=== PATIENT | male | born 1930 | race Caucasian/White ===

== ENCOUNTER 2022-03-07 17:47 | Inpatient (IN) | payer MEDICARE ==
[~2022-03-07] VITALS: Ht 177.8 cm; Wt 73.5 kg
[2022-03-07 19:06] VITALS: BP 129/72
[2022-03-07] MEDS ORDERED: DOCUSATE SODIUM 100MG CAPSULE PO PRN (19:30)
[2022-03-07] MEDS ORDERED: MORPHINE 2 MG/ML 1ML VIAL IV PRN (19:30)
[2022-03-07 20:04] LABS: BASO # 0.1 10^3/uL (0.0-0.2); BASO % 0.4 % (0.0-1.0); EOS % 0.1 % (0.0-3.0); HEMATOCRIT 32.9 % (42.0-52.0); HEMOGLOBIN 10.9 g/dl (13.5-17.5); LYMPH # 0.8 10^3/uL (1.5-5.0); LYMPH % 4.8 % (24.0-44.0); MEAN CORPUSCULAR HEMOGLOBIN 31.7 pg (27.0-33.0); MEAN CORPUSCULAR HGB CONC 33.1 g/dl (32.0-36.5); MEAN CORPUSCULAR VOLUME 95.6 fl (80.0-96.0); MONO # 0.8 10^3/uL (0.0-0.8); MONO % 4.4 % (2.0-8.0); NEUTROPHILS # 15.2 10^3/uL (1.5-8.5); NEUTROPHILS % 89.8 % (36.0-66.0); PLATELET COUNT, AUTOMATED 235 10^3/uL (150-450); RED BLOOD COUNT 3.44 10^6/uL (4.30-6.10); WHITE BLOOD COUNT 16.9 10^3/uL (4.0-10.0)
[2022-03-07 20:14] LABS: INR 1.08; PROTHROMBIN TIME 14.4 SECONDS (12.7-14.5)
[2022-03-07 20:15] LABS: PARTIAL THROMBOPLASTIN TIME 27.4 SECONDS (25.9-37.0)
[2022-03-07 20:28] LABS: BLOOD UREA NITROGEN 23 MG/DL (7-18); CALCIUM LEVEL 9.4 MG/DL (8.8-10.2); CARBON DIOXIDE LEVEL 26 MEQ/L (21-32); CHLORIDE LEVEL 106 MEQ/L (98-107); CREATININE FOR GFR 0.85 MG/DL (0.70-1.30); GLOMERULAR FILTRATION RATE > 60.0 (>35); GLUCOSE, FASTING 146 MG/DL (70-100); POTASSIUM SERUM 3.8 MEQ/L (3.5-5.1); SODIUM LEVEL 140 MEQ/L (136-145)
[2022-03-07] MEDS ORDERED: ASPIRIN 325 MG TAB PO SCH (21:00)
[2022-03-07 22:00] VITALS: BP 121/66
[2022-03-07] MEDS ORDERED: BAYE325T13 PO (23:10)
[2022-03-07] MEDS ORDERED: VITMTA PO (23:10)
[2022-03-07] MEDS ORDERED: FERR1TAB8 PO (23:10)
[2022-03-07] MEDS ORDERED: MAGN400T2 PO (23:10)
[2022-03-07] MEDS ORDERED: LUTE20TA2 PO (23:10)
[2022-03-07] MEDS ORDERED: VITA100093 PO (23:10)
[2022-03-07] MEDS ORDERED: FLON1SPR (23:10)
[2022-03-07] MEDS ORDERED: DICL20GE TOP (23:10)
[2022-03-07] MEDS ORDERED: HYDR-3490 PO (23:10)
[2022-03-07] MEDS ORDERED: GARL500C2 PO (23:10)
[2022-03-07] MEDS ORDERED: AZEL0.055 (23:10)
[2022-03-07] MEDS ORDERED: FISH1000 PO (23:10)
[2022-03-07] MEDS ORDERED: HOME MED LIST COMPLETE! XX SCH (23:15)
[2022-03-07] MEDS: LR 1,000 ML IV SCH (23:34)
[2022-03-07] MEDS: hydroCHLOROthiazide 12.5 MG CAPSULE PO SCH (23:34)
[2022-03-07 23:43] LABS: HEMOGLOBIN A1c 5.5 %
[2022-03-08] VITALS (8 sets, daily range): BP systolic 112–139; BP diastolic 58–65
[2022-03-08 00:09] LABS: NT-PRO BNP 114 PG/ML (<450)
[2022-03-08 06:22] LABS: HEMATOCRIT 30.6 % (42.0-52.0); HEMOGLOBIN 10.1 g/dl (13.5-17.5); MEAN CORPUSCULAR HEMOGLOBIN 31.6 pg (27.0-33.0); MEAN CORPUSCULAR VOLUME 95.6 fl (80.0-96.0); PLATELET COUNT, AUTOMATED 228 10^3/uL (150-450); WHITE BLOOD COUNT 12.9 10^3/uL (4.0-10.0)
[2022-03-08 06:49] LABS: BLOOD UREA NITROGEN 22 MG/DL (7-18); CALCIUM LEVEL 9.4 MG/DL (8.8-10.2); CARBON DIOXIDE LEVEL 29 MEQ/L (21-32); CHLORIDE LEVEL 105 MEQ/L (98-107); GLOMERULAR FILTRATION RATE > 60.0 (>35); GLUCOSE, FASTING 134 MG/DL (70-100); MAGNESIUM LEVEL 2.1 MG/DL (1.8-2.4); POTASSIUM SERUM 3.5 MEQ/L (3.5-5.1); SODIUM LEVEL 141 MEQ/L (136-145)
[2022-03-08 06:56] LABS: PERCENT SATURATION 13.5 % (19.7-50.0)
[2022-03-08] MEDS: THIAMINE 100 MG TAB PO SCH (09:40)
[2022-03-08] MEDS: MAGNESIUM OXIDE 400MG TAB (MAG-OX) PO SCH (09:40)
[2022-03-08] MEDS: VITAMIN D 1,000 INTERNATIONAL UNITS TABLET PO SCH (09:40)
[2022-03-08] MEDS: MULTIVITAMINS/MINERALS THERAP 1 TAB PO SCH (09:40)
[2022-03-08] MEDS: FERROUS SULFATE 325MG TAB PO SCH (09:40)
[2022-03-08] MEDS: FOLIC ACID 1 MG TAB PO SCH (09:40)
[2022-03-08] MEDS: FLUTICASONE PROP 0.05% NASAL SPRAY 16 GM (FLONASE) SCH (09:41)
[2022-03-08] MEDS: LR 1,000 ML IV SCH (12:21)
[2022-03-08] MEDS: ACETAMINOPHEN TAB 650MG DOSE (2X325MG) PO PRN ×2 (12:41→20:16)
[2022-03-08] MEDS ORDERED: propofoL 200 MG/20 ML VIAL As Ordered ONE (16:08)
[2022-03-08] MEDS ORDERED: LIDOCAINE 2% 100MG/5ML SDV (FOR ANES.) As Ordered ONE (16:08)
[2022-03-08] MEDS ORDERED: ceFAZolin 1GM VIAL (J0690 PER 500MG) As Ordered ONE ×2 (16:12→16:41)
[2022-03-08] MEDS ORDERED: ceFAZolin 2 GM/D5W 50 ML IV BAG (J0690 PER 500MG) As Ordered ONE (16:12)
[2022-03-08] MEDS ORDERED: KETAMINE HCL 200 MG/20 ML VIAL As Ordered ONE (16:37)
[2022-03-08] MEDS ORDERED: MIDAZOLAM INJ 2MG/2ML VIAL (J2250 PER 1MG) As Ordered ONE (16:38)
[2022-03-08] MEDS ORDERED: TRANEXAMIC ACID 100 MG/ML 10ML VIAL As Ordered ONE (16:41)
[2022-03-08] MEDS ORDERED: BUPIVACAINE HCL 0.25% 10ML VIAL As Ordered ONE (17:20)
[2022-03-08] MEDS ORDERED: BUPIVACAINE LIPOSOME/PF 1.3% 20ML VIAL (13.3MG/ML)(EXPAREL) As Ordered ONE (17:20)
[2022-03-08] MEDS: hydroCHLOROthiazide 12.5 MG CAPSULE PO SCH (20:15)
[2022-03-08 21:47] LABS: BILIRUBIN,DIRECT 0.3 MG/DL (0.0-0.2); BILIRUBIN,TOTAL 1.2 MG/DL (0.2-1.0); TOTAL PROTEIN 6.6 GM/DL (6.4-8.2)
[2022-03-09] MEDS: ceFAZolin SOD 2 GM in IV 1 EA IV SCH ×2 (00:56→07:49)
[2022-03-09 02:00] VITALS: BP 121/60
[2022-03-09 06:00] VITALS: BP 123/61
[2022-03-09 06:24] LABS: HEMATOCRIT 27.3 % (42.0-52.0); HEMOGLOBIN 8.9 g/dl (13.5-17.5); MEAN CORPUSCULAR HEMOGLOBIN 31.2 pg (27.0-33.0); MEAN CORPUSCULAR HGB CONC 32.6 g/dl (32.0-36.5); MEAN CORPUSCULAR VOLUME 95.8 fl (80.0-96.0); PLATELET COUNT, AUTOMATED 174 10^3/uL (150-450); RED BLOOD COUNT 2.85 10^6/uL (4.30-6.10)
[2022-03-09 06:45] LABS: BLOOD UREA NITROGEN 22 MG/DL (7-18); CARBON DIOXIDE LEVEL 30 MEQ/L (21-32); CHLORIDE LEVEL 102 MEQ/L (98-107); CREATININE FOR GFR 0.88 MG/DL (0.70-1.30); GLOMERULAR FILTRATION RATE > 60.0 (>35); GLUCOSE, FASTING 133 MG/DL (70-100); POTASSIUM SERUM 3.3 MEQ/L (3.5-5.1); SODIUM LEVEL 140 MEQ/L (136-145)
[2022-03-09] MEDS: NORCO, ANEXSIA 5/325MG TABLET (HYDROcodone/ACETAMINOPHEN) PO PRN ×3 (07:50→22:52)
[2022-03-09] MEDS: FOLIC ACID 1 MG TAB PO SCH (07:50)
[2022-03-09] MEDS: THIAMINE 100 MG TAB PO SCH (07:50)
[2022-03-09] MEDS: MULTIVITAMINS/MINERALS THERAP 1 TAB PO SCH (07:50)
[2022-03-09] MEDS: MAGNESIUM OXIDE 400MG TAB (MAG-OX) PO SCH (07:51)
[2022-03-09] MEDS: FLUTICASONE PROP 0.05% NASAL SPRAY 16 GM (FLONASE) SCH (07:51)
[2022-03-09] MEDS: FERROUS SULFATE 325MG TAB PO SCH (07:51)
[2022-03-09] MEDS ORDERED: ENOXAPARIN 40MG/0.4ML SYRINGE (J1650 PER 10MG) SC SCH (09:00)
[2022-03-09 10:00] VITALS: BP 128/58
[2022-03-09] MEDS: carisoprodoL 350 MG TAB PO PRN (10:19)
[2022-03-09] MEDS: ACETAMINOPHEN TAB 650MG DOSE (2X325MG) PO PRN (12:52)
[2022-03-09 14:00] VITALS: BP 118/60
[2022-03-09] MEDS: RIVAROXABAN 10 MG TAB (XARELTO) PO SCH (16:24)
[2022-03-09 18:00] VITALS: BP 136/63
[2022-03-09 18:29] LABS: FOLATE 11.5 NG/ML (>5.4)
[2022-03-09] MEDS: hydroCHLOROthiazide 12.5 MG CAPSULE PO SCH (20:57)
[2022-03-09 21:46] VITALS: BP 132/62
[2022-03-10 06:00] VITALS: BP 127/61
[2022-03-10 06:59] LABS: HEMOGLOBIN 7.9 g/dl (13.5-17.5); MEAN CORPUSCULAR HEMOGLOBIN 31.6 pg (27.0-33.0); MEAN CORPUSCULAR HGB CONC 32.9 g/dl (32.0-36.5); PLATELET COUNT, AUTOMATED 180 10^3/uL (150-450); WHITE BLOOD COUNT 14.2 10^3/uL (4.0-10.0)
[2022-03-10 08:00] VITALS: BP 108/60
[2022-03-10] MEDS ORDERED: POTASSIUM CHLORIDE 10MEQ SR TABLET PO ONE (08:00)
[2022-03-10] MEDS: FOLIC ACID 1 MG TAB PO SCH (08:42)
[2022-03-10] MEDS: FLUTICASONE PROP 0.05% NASAL SPRAY 16 GM (FLONASE) SCH (08:42)
[2022-03-10] MEDS: FERROUS SULFATE 325MG TAB PO SCH (08:42)
[2022-03-10] MEDS: THIAMINE 100 MG TAB PO SCH (08:43)
[2022-03-10] MEDS: VITAMIN D 1,000 INTERNATIONAL UNITS TABLET PO SCH (08:43)
[2022-03-10] MEDS: MAGNESIUM OXIDE 400MG TAB (MAG-OX) PO SCH (08:44)
[2022-03-10] MEDS: MULTIVITAMINS/MINERALS THERAP 1 TAB PO SCH (08:44)
[2022-03-10 11:48] LABS: BLOOD UREA NITROGEN 24 MG/DL (7-18); CALCIUM LEVEL 8.6 MG/DL (8.8-10.2); CARBON DIOXIDE LEVEL 33 MEQ/L (21-32); CHLORIDE LEVEL 101 MEQ/L (98-107); CREATININE FOR GFR 0.81 MG/DL (0.70-1.30); GLOMERULAR FILTRATION RATE > 60.0 (>35); GLUCOSE, FASTING 114 MG/DL (70-100); POTASSIUM SERUM 3.5 MEQ/L (3.5-5.1); SODIUM LEVEL 139 MEQ/L (136-145)
[2022-03-10 12:00] LABS: HEMATOCRIT 24.7 % (42.0-52.0); HEMOGLOBIN 8.3 g/dl (13.5-17.5); MEAN CORPUSCULAR HGB CONC 33.6 g/dl (32.0-36.5); MEAN CORPUSCULAR VOLUME 95.4 fl (80.0-96.0); PLATELET COUNT, AUTOMATED 185 10^3/uL (150-450); RED BLOOD COUNT 2.59 10^6/uL (4.30-6.10); WHITE BLOOD COUNT 13.4 10^3/uL (4.0-10.0)
[2022-03-10 12:24] LABS: MAGNESIUM LEVEL 2.2 MG/DL (1.8-2.4)
[2022-03-10] MEDS: NORCO, ANEXSIA 5/325MG TABLET (HYDROcodone/ACETAMINOPHEN) PO PRN ×2 (12:51→21:01)
[2022-03-10 14:00] VITALS: BP 110/58
[2022-03-10] MEDS: RIVAROXABAN 10 MG TAB (XARELTO) PO SCH (18:01)
[2022-03-10] MEDS: hydroCHLOROthiazide 12.5 MG CAPSULE PO SCH (20:59)
[2022-03-10 21:45] VITALS: BP 124/60
[2022-03-11 06:00] VITALS: BP 123/59
[2022-03-11 06:04] LABS: HEMATOCRIT 24.4 % (42.0-52.0); MEAN CORPUSCULAR HEMOGLOBIN 31.4 pg (27.0-33.0); MEAN CORPUSCULAR HGB CONC 32.8 g/dl (32.0-36.5); MEAN CORPUSCULAR VOLUME 95.7 fl (80.0-96.0); PLATELET COUNT, AUTOMATED 203 10^3/uL (150-450); RED BLOOD COUNT 2.55 10^6/uL (4.30-6.10)
[2022-03-11 06:20] LABS: BLOOD UREA NITROGEN 23 MG/DL (7-18); CALCIUM LEVEL 8.7 MG/DL (8.8-10.2); CARBON DIOXIDE LEVEL 30 MEQ/L (21-32); CHLORIDE LEVEL 98 MEQ/L (98-107); CREATININE FOR GFR 0.68 MG/DL (0.70-1.30); GLOMERULAR FILTRATION RATE > 60.0 (>35); GLUCOSE, FASTING 118 MG/DL (70-100); POTASSIUM SERUM 3.1 MEQ/L (3.5-5.1); SODIUM LEVEL 135 MEQ/L (136-145)
[2022-03-11] MEDS ORDERED: POTASSIUM CHLORIDE 10MEQ SR TABLET PO ONE (07:30)
[2022-03-11] MEDS: FOLIC ACID 1 MG TAB PO SCH (08:35)
[2022-03-11] MEDS: THIAMINE 100 MG TAB PO SCH (08:35)
[2022-03-11] MEDS: MAGNESIUM OXIDE 400MG TAB (MAG-OX) PO SCH (08:35)
[2022-03-11] MEDS: FERROUS SULFATE 325MG TAB PO SCH (08:35)
[2022-03-11] MEDS: MULTIVITAMINS/MINERALS THERAP 1 TAB PO SCH (08:36)
[2022-03-11] MEDS: FLUTICASONE PROP 0.05% NASAL SPRAY 16 GM (FLONASE) SCH (08:37)
[2022-03-11] MEDS: NORCO, ANEXSIA 5/325MG TABLET (HYDROcodone/ACETAMINOPHEN) PO PRN ×2 (09:19→17:05)
[2022-03-11 14:00] VITALS: BP 119/62
[2022-03-11] MEDS: RIVAROXABAN 10 MG TAB (XARELTO) PO SCH (17:05)
[2022-03-11 20:00] VITALS: BP 120/61
[2022-03-11] MEDS: hydroCHLOROthiazide 12.5 MG CAPSULE PO SCH (21:11)
[2022-03-11] MEDS: carisoprodoL 350 MG TAB PO PRN (22:32)
[2022-03-12 06:00] VITALS: BP 120/61
[2022-03-12 06:47] LABS: HEMATOCRIT 23.3 % (42.0-52.0); HEMOGLOBIN 7.7 g/dl (13.5-17.5); MEAN CORPUSCULAR HEMOGLOBIN 31.4 pg (27.0-33.0); MEAN CORPUSCULAR VOLUME 95.1 fl (80.0-96.0); PLATELET COUNT, AUTOMATED 222 10^3/uL (150-450); RED BLOOD COUNT 2.45 10^6/uL (4.30-6.10); WHITE BLOOD COUNT 12.1 10^3/uL (4.0-10.0)
[2022-03-12 07:13] LABS: BLOOD UREA NITROGEN 23 MG/DL (7-18); CALCIUM LEVEL 8.6 MG/DL (8.8-10.2); CARBON DIOXIDE LEVEL 32 MEQ/L (21-32); CHLORIDE LEVEL 98 MEQ/L (98-107); CREATININE FOR GFR 0.71 MG/DL (0.70-1.30); GLOMERULAR FILTRATION RATE > 60.0 (>35); GLUCOSE, FASTING 116 MG/DL (70-100); POTASSIUM SERUM 3.8 MEQ/L (3.5-5.1); SODIUM LEVEL 136 MEQ/L (136-145)
[2022-03-12] MEDS: FOLIC ACID 1 MG TAB PO SCH (09:40)
[2022-03-12] MEDS: MULTIVITAMINS/MINERALS THERAP 1 TAB PO SCH (09:41)
[2022-03-12] MEDS: VITAMIN D 1,000 INTERNATIONAL UNITS TABLET PO SCH (09:41)
[2022-03-12] MEDS: MAGNESIUM OXIDE 400MG TAB (MAG-OX) PO SCH (09:41)
[2022-03-12] MEDS: FERROUS SULFATE 325MG TAB PO SCH (09:41)
[2022-03-12] MEDS: THIAMINE 100 MG TAB PO SCH (09:41)
[2022-03-12] MEDS: FLUTICASONE PROP 0.05% NASAL SPRAY 16 GM (FLONASE) SCH (09:41)
[2022-03-12 09:47] VITALS: BP 119/61
[2022-03-12] MEDS: NORCO, ANEXSIA 5/325MG TABLET (HYDROcodone/ACETAMINOPHEN) PO PRN ×2 (09:47→20:05)
[2022-03-12 14:00] VITALS: BP 116/62
[2022-03-12] MEDS: RIVAROXABAN 10 MG TAB (XARELTO) PO SCH (18:04)
[2022-03-12] MEDS: hydroCHLOROthiazide 12.5 MG CAPSULE PO SCH (20:03)
[2022-03-12 22:00] VITALS: BP 116/61
[2022-03-13] VITALS (8 sets, daily range): BP systolic 92–115; BP diastolic 51–56
[2022-03-13] MEDS: NORCO, ANEXSIA 5/325MG TABLET (HYDROcodone/ACETAMINOPHEN) PO PRN ×2 (05:55→18:45)
[2022-03-13 06:36] LABS: HEMATOCRIT 23.6 % (42.0-52.0); HEMOGLOBIN 7.5 g/dl (13.5-17.5); MEAN CORPUSCULAR HEMOGLOBIN 30.9 pg (27.0-33.0); MEAN CORPUSCULAR HGB CONC 31.8 g/dl (32.0-36.5); MEAN CORPUSCULAR VOLUME 97.1 fl (80.0-96.0); PLATELET COUNT, AUTOMATED 283 10^3/uL (150-450); RED BLOOD COUNT 2.43 10^6/uL (4.30-6.10); WHITE BLOOD COUNT 12.6 10^3/uL (4.0-10.0)
[2022-03-13 07:03] LABS: BLOOD UREA NITROGEN 26 MG/DL (7-18); CARBON DIOXIDE LEVEL 30 MEQ/L (21-32); CHLORIDE LEVEL 99 MEQ/L (98-107); CREATININE FOR GFR 0.74 MG/DL (0.70-1.30); GLOMERULAR FILTRATION RATE > 60.0 (>35); GLUCOSE, FASTING 108 MG/DL (70-100); POTASSIUM SERUM 4.1 MEQ/L (3.5-5.1); SODIUM LEVEL 134 MEQ/L (136-145)
[2022-03-13] MEDS: FERROUS SULFATE 325MG TAB PO SCH (08:54)
[2022-03-13] MEDS: FLUTICASONE PROP 0.05% NASAL SPRAY 16 GM (FLONASE) SCH (08:54)
[2022-03-13] MEDS: MULTIVITAMINS/MINERALS THERAP 1 TAB PO SCH (08:54)
[2022-03-13] MEDS: THIAMINE 100 MG TAB PO SCH (08:54)
[2022-03-13] MEDS: MAGNESIUM OXIDE 400MG TAB (MAG-OX) PO SCH (08:54)
[2022-03-13] MEDS: FOLIC ACID 1 MG TAB PO SCH (08:54)
[2022-03-13 10:55] LABS: HEMATOCRIT 23.9 % (42.0-52.0); HEMOGLOBIN 7.9 g/dl (13.5-17.5)
[2022-03-13] MEDS ORDERED: ACETAMINOPHEN 500 MG TAB PO ONE (11:30)
[2022-03-13] MEDS: GASTROGRAFIN SOLUTION 30ML PO SCH ×2 (15:28→15:57)
[2022-03-13] MEDS: RIVAROXABAN 10 MG TAB (XARELTO) PO SCH (18:42)
[2022-03-13 22:56] LABS: HEMATOCRIT 25.4 % (42.0-52.0); HEMOGLOBIN 8.6 g/dl (13.5-17.5)
[2022-03-14] MEDS: FLUTICASONE PROP 0.05% NASAL SPRAY 16 GM (FLONASE) SCH (01:05)
[2022-03-14] MEDS: NORCO, ANEXSIA 5/325MG TABLET (HYDROcodone/ACETAMINOPHEN) PO PRN ×4 (01:05→23:14)
[2022-03-14 05:07] VITALS: BP 121/58
[2022-03-14 06:18] LABS: HEMATOCRIT 27.5 % (42.0-52.0); HEMOGLOBIN 9.2 g/dl (13.5-17.5); MEAN CORPUSCULAR HEMOGLOBIN 31.2 pg (27.0-33.0); MEAN CORPUSCULAR HGB CONC 33.5 g/dl (32.0-36.5); MEAN CORPUSCULAR VOLUME 93.2 fl (80.0-96.0); PLATELET COUNT, AUTOMATED 296 10^3/uL (150-450); RED BLOOD COUNT 2.95 10^6/uL (4.30-6.10); WHITE BLOOD COUNT 12.1 10^3/uL (4.0-10.0)
[2022-03-14 06:50] LABS: BLOOD UREA NITROGEN 22 MG/DL (7-18); CALCIUM LEVEL 8.8 MG/DL (8.8-10.2); CARBON DIOXIDE LEVEL 29 MEQ/L (21-32); CHLORIDE LEVEL 97 MEQ/L (98-107); CREATININE FOR GFR 0.61 MG/DL (0.70-1.30); GLOMERULAR FILTRATION RATE > 60.0 (>35); GLUCOSE, FASTING 102 MG/DL (70-100); POTASSIUM SERUM 3.4 MEQ/L (3.5-5.1); SODIUM LEVEL 133 MEQ/L (136-145)
[2022-03-14] MEDS: VITAMIN D 1,000 INTERNATIONAL UNITS TABLET PO SCH (08:10)
[2022-03-14] MEDS: FOLIC ACID 1 MG TAB PO SCH (08:10)
[2022-03-14] MEDS: MULTIVITAMINS/MINERALS THERAP 1 TAB PO SCH (08:10)
[2022-03-14] MEDS: MAGNESIUM OXIDE 400MG TAB (MAG-OX) PO SCH (08:10)
[2022-03-14] MEDS: FERROUS SULFATE 325MG TAB PO SCH (08:10)
[2022-03-14] MEDS: THIAMINE 100 MG TAB PO SCH (08:10)
[2022-03-14] MEDS: LIDOCAINE 5% OINT 30GM TUBE TOP SCH ×3 (13:55→20:25)
[2022-03-14 14:00] VITALS: BP 120/57
[2022-03-14] MEDS ORDERED: ENOXAPARIN 40MG/0.4ML SYRINGE (J1650 PER 10MG) SC SCH (18:00)
[2022-03-14 21:34] VITALS: BP 121/58
[2022-03-15 05:24] VITALS: BP 119/56
[2022-03-15 06:35] LABS: HEMATOCRIT 26.1 % (42.0-52.0); HEMOGLOBIN 8.6 g/dl (13.5-17.5); MEAN CORPUSCULAR HEMOGLOBIN 30.8 pg (27.0-33.0); MEAN CORPUSCULAR VOLUME 93.5 fl (80.0-96.0); PLATELET COUNT, AUTOMATED 334 10^3/uL (150-450); RED BLOOD COUNT 2.79 10^6/uL (4.30-6.10)
[2022-03-15 06:53] LABS: BLOOD UREA NITROGEN 21 MG/DL (7-18); CALCIUM LEVEL 8.8 MG/DL (8.8-10.2); CARBON DIOXIDE LEVEL 29 MEQ/L (21-32); CHLORIDE LEVEL 97 MEQ/L (98-107); CREATININE FOR GFR 0.66 MG/DL (0.70-1.30); GLOMERULAR FILTRATION RATE > 60.0 (>35); GLUCOSE, FASTING 120 MG/DL (70-100); POTASSIUM SERUM 3.4 MEQ/L (3.5-5.1); SODIUM LEVEL 135 MEQ/L (136-145)
[2022-03-15] MEDS ORDERED: ACETAMINOPHEN TAB 650MG DOSE (2X325MG) PO ONE (07:05)
[2022-03-15] MEDS: MAGNESIUM OXIDE 400MG TAB (MAG-OX) PO SCH (08:31)
[2022-03-15] MEDS: FERROUS SULFATE 325MG TAB PO SCH (08:31)
[2022-03-15] MEDS: THIAMINE 100 MG TAB PO SCH (08:31)
[2022-03-15] MEDS: FOLIC ACID 1 MG TAB PO SCH (08:31)
[2022-03-15] MEDS: LIDOCAINE 5% OINT 30GM TUBE TOP SCH ×5 (08:32→20:16)
[2022-03-15] MEDS: POTASSIUM CHLORIDE 10MEQ SR TABLET PO SCH (08:32)
[2022-03-15] MEDS: MULTIVITAMINS/MINERALS THERAP 1 TAB PO SCH (08:32)
[2022-03-15] MEDS: FLUTICASONE PROP 0.05% NASAL SPRAY 16 GM (FLONASE) SCH (08:32)
[2022-03-15] MEDS ORDERED: POTASSIUM CHLORIDE 10MEQ SR TABLET PO ONE (09:20)
[2022-03-15] MEDS ORDERED: HYDR-3715 PO (12:22)
[2022-03-15] MEDS ORDERED: ASPI-551 PO (12:22)
[2022-03-15] MEDS ORDERED: FOLI1TAB11 PO (12:22)
[2022-03-15] MEDS ORDERED: COLA100C5 PO (12:22)
[2022-03-15] MEDS ORDERED: THIA100TA PO (12:22)
[2022-03-15] MEDS ORDERED: CARI1TAB7 PO (12:22)
[2022-03-15] MEDS ORDERED: LIDO5OIN19 TOP (12:22)
[2022-03-15] MEDS: NORCO, ANEXSIA 5/325MG TABLET (HYDROcodone/ACETAMINOPHEN) PO PRN ×2 (12:44→23:38)
[2022-03-15 14:00] VITALS: BP 115/55
[2022-03-15] MEDS ORDERED: XARE10TA PO (15:46)
[2022-03-15] MEDS ORDERED: RIVAROXABAN 10 MG TAB (XARELTO) PO SCH (18:00)
[2022-03-15 20:49] VITALS: BP 137/59
[2022-03-16 05:33] VITALS: BP 134/80
[2022-03-16 06:59] LABS: HEMATOCRIT 28.1 % (42.0-52.0); HEMOGLOBIN 9.2 g/dl (13.5-17.5); MEAN CORPUSCULAR HEMOGLOBIN 31.3 pg (27.0-33.0); MEAN CORPUSCULAR HGB CONC 32.7 g/dl (32.0-36.5); MEAN CORPUSCULAR VOLUME 95.6 fl (80.0-96.0); PLATELET COUNT, AUTOMATED 388 10^3/uL (150-450); RED BLOOD COUNT 2.94 10^6/uL (4.30-6.10); WHITE BLOOD COUNT 12.8 10^3/uL (4.0-10.0)
[2022-03-16 07:57] LABS: BLOOD UREA NITROGEN 19 MG/DL (7-18); CALCIUM LEVEL 8.4 MG/DL (8.8-10.2); CARBON DIOXIDE LEVEL 29 MEQ/L (21-32); CHLORIDE LEVEL 98 MEQ/L (98-107); CREATININE FOR GFR 0.66 MG/DL (0.70-1.30); GLOMERULAR FILTRATION RATE > 60.0 (>35); GLUCOSE, FASTING 92 MG/DL (70-100); POTASSIUM SERUM 4.1 MEQ/L (3.5-5.1); SODIUM LEVEL 132 MEQ/L (136-145)
[2022-03-16] MEDS: FERROUS SULFATE 325MG TAB PO SCH (09:13)
[2022-03-16] MEDS: THIAMINE 100 MG TAB PO SCH (09:14)
[2022-03-16] MEDS: MAGNESIUM OXIDE 400MG TAB (MAG-OX) PO SCH (09:14)
[2022-03-16] MEDS: MULTIVITAMINS/MINERALS THERAP 1 TAB PO SCH (09:14)
[2022-03-16] MEDS: VITAMIN D 1,000 INTERNATIONAL UNITS TABLET PO SCH (09:14)
[2022-03-16] MEDS: FOLIC ACID 1 MG TAB PO SCH (09:14)
[2022-03-16] MEDS: FLUTICASONE PROP 0.05% NASAL SPRAY 16 GM (FLONASE) SCH (09:14)
[2022-03-16] MEDS: POTASSIUM CHLORIDE 10MEQ SR TABLET PO SCH (09:14)
[2022-03-16] MEDS: LIDOCAINE 5% OINT 30GM TUBE TOP SCH (09:15)
[2022-03-23] MEDS ORDERED: ASPIRIN 81MG ENTERIC TABLET PO SCH (09:00)
== END 2022-03-16 10:21 | DRG 481 ==
LOC: M MS5PR 18:50
PROVIDERS: ADMIT Internal Medicine Nephrology; ATTEND General Practice
PROC: 0QS706Z Reposition Left Upper Femur with Intramedullary Internal Fixation Device, Open Approach (ICD-10-PCS; principal; 2022-03-08 18:00)
PROC: 30233N1 Transfusion of Nonautologous Red Blood Cells into Peripheral Vein, Percutaneous Approach (ICD-10-PCS; 2022-03-13)
DX: S72.142A Displaced intertrochanteric fracture of left femur, initial encounter for closed fracture (principal); K63.2 Fistula of intestine; I10 Essential (primary) hypertension; Z93.3 Colostomy status; K21.9 Gastro-esophageal reflux disease without esophagitis; D72.829 Elevated white blood cell count, unspecified; W18.30XA Fall on same level, unspecified, initial encounter; Y92.009 Unspecified place in unspecified non-institutional (private) residence as the place of occurrence of the external cause; D64.9 Anemia, unspecified; Z85.038 Personal history of other malignant neoplasm of large intestine; Z85.828 Personal history of other malignant neoplasm of skin; Z79.899 Other long term (current) drug therapy; M19.90 Unspecified osteoarthritis, unspecified site; Z87.891 Personal history of nicotine dependence

== ENCOUNTER → 2022-04-05 | Outpatient (CLI) | payer MEDICARE ==
[~2022-04-05] MED LIST: ASPI-551 PO; AZEL0.055; BAYE325T13 PO; CARI1TAB7 PO; COLA100C5 PO; DICL20GE TOP; FERR1TAB8 PO; FISH1000 PO; FLON1SPR; FOLI1TAB11 PO; GARL500C2 PO; HYDR-3490 PO; HYDR-3715 PO; LIDO5OIN19 TOP; LUTE20TA2 PO; MAGN400T2 PO; THIA100TA PO; VITA100093 PO; VITMTA PO; XARE10TA PO
== END ==
LOC: M SOG 14:55
PROVIDERS: ATTEND Orthopaedic Surgery
DX: S72.142A Displaced intertrochanteric fracture of left femur, initial encounter for closed fracture (principal)